=== PATIENT | female | born 1950 | race Caucasian/White ===

== ENCOUNTER → 2016-05-07 | Outpatient (CLI) | payer BC ==
--- NOTE | 2016-05-07 14:26 | MAMMOGRAPHY REPORT ---
BILATERAL DIGITAL SCREENING MAMMOGRAM WITH CAD: 05/07/2016 CLINICAL HISTORY: Routine screening. Patient has no complaints. TECHNIQUE: Bilateral CC, MLO and right XCCL views were obtained. Current study was also evaluated w ith a Computer Aided Detection (CAD) system. COMPARISON: Comparison is made to exams dated: 05/03/2015 mammogram, 03/10/2012 mammogram, 04/05/2014 mammogram, 03/06/2011 mammogram, 02/28/2010 mammogram - [facility], and 03/11/2006 ma mmogram - [facility]. BREAST COMPOSITION: There are scattered areas of fibroglandular density in both breasts. FINDINGS: There is stable focal asymmetry in the right upper outer quadrant. Minimal vascular calci fication in the breasts. No suspicious mass, architectural distortion or cluster of microcalcificat ions is seen. IMPRESSION: ACR BI-RADS CATEGORY 1: NEGATIVE There is no mammographic evidence of malignancy. A 1 year screening mammogram is recommended. The p atient will receive written notification of the results. Approximately 10% of breast cancers are not detected with mammography. A negative mammographic repor t should not delay biopsy if a clinically suggestive mass is present. Minerva Zamorano M.D. ay/:05/07/2016 13:23:00 Head Sampler: Monica CONTRERAS)(M), [facility] letter sent: Normal 1/2 BI-RADS Code: ACR BI-RADS Category 1: Negative
== END | disposition home or self-care (01) ==
LOC: C.MAMM 12:33
PROVIDERS: ATTEND Obstetrics & Gynecology
DX: Z12.31 Encounter for screening mammogram for malignant neoplasm of breast (principal)

== ENCOUNTER → 2016-08-28 | Outpatient (CLI) | payer BC | END | disposition home or self-care (01) | LOC: C.PAPS 08:49 | PROVIDERS: ATTEND Obstetrics & Gynecology | DX: Z01.419 Encounter for gynecological examination (general) (routine) without abnormal findings (principal) ==

== ENCOUNTER → 2017-05-09 | Outpatient (CLI) | payer BC ==
--- NOTE | 2017-05-10 07:20 | MAMMOGRAPHY REPORT ---
BILATERAL DIGITAL SCREENING MAMMOGRAM TOMOSYNTHESIS WITH CAD: 05/09/2017 CLINICAL HISTORY: Routine screening. Patient has no complaints. TECHNIQUE: Breast tomosynthesis in addition to standard 2D mammography was performed. Current study was also evaluated with a Computer Aided Detection (CAD) system. COMPARISON: Comparison is made to exams dated: 05/07/2016 mammogram, 05/03/2015 mammogram, 04/05/2014 m ammogram, 03/10/2012 mammogram, 03/06/2011 mammogram, and 02/28/2010 mammogram - [facility]. BREAST COMPOSITION: There are scattered areas of fibroglandular density in both breasts. FINDINGS: No suspicious masses, calcifications, or areas of architectural distortion are noted in ei ther breast. There has been no significant interval change compared to prior exams. IMPRESSION: ACR BI-RADS CATEGORY 1: NEGATIVE There is no mammographic evidence of malignancy. A 1 year screening mammogram is recommended. The pa tient will receive written notification of the results. Approximately 10% of breast cancers are not detected with mammography. A negative mammographic report should not delay biopsy if a clinically suggestive mass is present. Ashley Kapoor M.D. ah/:05/09/2017 12:46:13 Dispatcher Bus And Trolley: Maria De Jesus PAZ(Lelo)(Rhona)(BD), [facility] letter sent: Normal 1/2 BI-RADS Code: ACR BI-RADS Category 1: Negative
== END | disposition home or self-care (01) ==
LOC: C.MAMM 11:11
PROVIDERS: ATTEND Obstetrics & Gynecology
DX: Z12.31 Encounter for screening mammogram for malignant neoplasm of breast (principal)

== ENCOUNTER 2021-11-17 12:20 | Inpatient (IN) ==
--- NOTE | 2021-11-17 13:06 | XRay Report ---
XR chest 1V portable HISTORY: 71 years-old Female weakness acute weakness COMPARISON: None TECHNIQUE: Portable AP view of the chest FINDINGS: Cardiomediastinal and hilar silhouettes are within normal limits. No pneumothorax, pleural effusion, airspace consolidation or overt pulmonary edema. Bones of the chest appear grossly intact. IMPRESSION: No acute process. ACT 112: Negative or not required by law. The above report was generated using voice recognition software. It may contain grammatical, syntax o r spelling errors. Electronically signed by: Sai Grimaldo M.D. 11/17/2021 1:05 PM
--- NOTE | 2021-11-17 13:59 | Electrocardiogram Report ---
Test Reason : Blood Pressure : / mmHG Vent. Rate : 075 BPM Atrial Rate : 075 BPM P-R Int : 142 ms QRS Dur : 082 ms QT Int : 372 ms P-R-T Axes : 010 -09 043 degrees QTc Int : 415 ms Normal sinus rhythm Nonspecific ST abnormality Abnormal ECG No previous ECGs available Confirmed by Jalil Leonard ([id number]) on 11/17/2021 1:59:20 PM Referred By: Confirmed By:Demetrio Leonard
[2021-11-17 14:00] LABS: Troponin I High Sensitivity 12.1 pg/ml (0-14)
[2021-11-17 14:01] LABS: Albumin Globulin Ratio 1.6 (0.9-2); Albumin Level 4.1 gm/dl (3.4-5.0); BUN Creatinine Ratio 16.3 (10-20); Bilirubin,Total 1.3 mg/dl (0.2-1.0); Calcium 8.8 mg/dl (8.5-10.1); Creatinine Clr Calc Pharmacy 47.7 ml/min; Est GFR (African American) 87.2 ml/min; Est GFR (Non-African American) 75.2 ml/min; Globulin 2.5 gm/dl (2.5-4.0); Magnesium 2.1 mg/dl (1.7-2.4); Potassium 3.4 mmol/L (3.5-5.1); Total Protein 6.6 gm/dl (6.0-8.3)
[2021-11-17 14:07] LABS: Hematocrit (blood only) 38.2 % (34.1-44.9); Hemoglobin 13.5 g/dl (12.0-16.0); Mean Corpuscular Hemoglobin 30.4 pg (25.0-34.0); Mean Corpuscular Hgb Conc 35.3 g/dL (32.0-36.0); Mean Platelet Volume 12.5 fL (9.4-12.3); Platelet Count 28 K/uL (130-400); RDW Coefficient of Variation 12.6 % (11.5-14.5); RDW Standard Deviation 39.6 fL (36.4-46.3); Red Blood Count 4.44 M/uL (3.93-5.22); White Blood Count 2.85 K/ul (4.8-10.8)
[2021-11-17 14:35] LABS: Basophils # (auto) 0.01 K/uL (0-0.2); Basophils % (auto) 0.4 %; Immature Granulocytes # (auto) 0.01 K/uL (0.00-0.02); Immature Granulocytes % (auto) 0.4 %; Lymphocytes # (auto) 0.44 K/uL (1.2-3.4); Lymphocytes % (auto) 15.4 %; Monocytes # (auto) 0.21 K/uL (0.24-0.82); Monocytes % (auto) 7.4 %; Neutrophils # (auto) 2.18 K/uL (1.4-6.5); Neutrophils % (auto) 76.4 %
[2021-11-17 14:38] LABS: Anaplasmosis Smear(Rpt to DOH) Pos for Anaplasma
[2021-11-17] MEDS: SODIUM CHLORIDE 0.9% 1000ML 1,000 ML IV SCH (14:39)
[2021-11-17 14:41] LABS: Toxic Vacuolation 2+
[2021-11-17] MEDS ORDERED: ACETAMINOPHEN 325 MG TAB PO STA (14:47)
[2021-11-17] MEDS ORDERED: DOXYCYCLINE HYCLATE 100 MG in DEXTROSE 5% 100 ML IV STA (15:05)
--- NOTE | 2021-11-17 15:37 | Emergency Department Note ---
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 It became noticeably worse 3 days ago. Her states she has not been out of bed much over the last 4 days. He became concerned and brought her to the ED. Patient states she has lost her appetite. She has a known right AKA. She is blaming most of her symptoms on the extra effort it takes to move about with her prosthesis. She has had intermittent low-grade fevers over the last several days. She states she has used some Tylenol which has been effective. She has had her fever break a few times causing her to sweat. Intermittent mild frontal headaches. No head congestion or sore throat. No diarrhea. No other cold symptoms. She has not seen her PCP. No prior history of similar episode. Home Medications Medication Instructions Recorded Confirmed Type atorvastatin 20 mg tablet 20 mg PO DAILY 12/01/20 11/17/21 History gabapentin 300 mg capsule 600 - 900 mg PO TID 12/01/20 11/17/21 History lactobacillus combination no.4 3 0 mmu cells PO DAILY 11/17/21 11/17/21 History billion cell capsule (Probiotic) pantoprazole 40 mg tablet,delayed 40 mg PO DAILY 11/17/21 11/17/21 History release doxycycline hyclate 100 mg tablet 100 mg PO BID #20 tabs 11/19/21 Rx potassium chloride 20 mEq 20 meq PO DAILY #5 tabs 11/19/21 Rx tablet,extended release Allergies Allergy/AdvReac Type Severity Reaction Status Date / Time bee venom protein (honey bee) Allergy Mild Unknown Verified 11/17/21 15:59 Past Med/Surg History Medical History (Updated 11/17/21 @ 22:16 by Magalis Hall PA-C) Dyslipidemia Endometriosis Esophageal reflux Hypercholesterolemia Osteopenia 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 Surgical History H/O laparoscopy x2 History of dental surgery Hx of amputation below knee S/P wrist surgery Family History Denies family history of Ovarian cancer Prostate cancer Breast cancer Colorectal cancer Uterine cancer Social History (Updated 11/17/21 @ 22:14 by Magalis Hall PA-C) Smoking Status: Never smoker Hx Alcohol Use: No Hx Substance Use: No Preferred Language: Citizen Of [place] Communication Ability: Effective Cork Tipper Required: No Beliefs That Will Affect Care: None marital status: Current Living Situation: Spouse current occupational status: retired Other Information That Helps Us Care for You: No Feels Safe at Home: Yes Safety Concerns: Feels Safe At This Time Assistive Devices: Wheelchair Review of Systems A total of 10 systems reviewed and were otherwise negative Physical Exam Vital Signs Vital Signs - 24 hr 11/17/21 12:24 11/17/21 12:44 11/17/21 12:44 Temperature 36.3 C L Temperature Source Oral Pulse Rate 104 H Pulse Rate [Apical] 78 Pulse Rhythm Regular Pulse Strength Normal Respiratory Rate 18 18 Respiratory Effort / Characteristics Non-Labored Spontaneous Non-Labored Spontaneous Respiratory Depth Normal Normal Respiratory Pattern Regular Blood Pressure 109/75 Blood Pressure [Right Arm] 137/65 Blood Pressure Mean 86 Blood Pressure Mean [Right Arm] 89 Blood Pressure Position Sitting Pulse Oximetry 100 96 96 Oxygen Delivery Method Room Air Room Air Room Air Sepsis Recent Fever Within 48 Hours No Sepsis New/Unexplained Change in Mental Status No Sepsis Action Taken by Nursing No Action Required 11/17/21 13:13 11/17/21 13:46 11/17/21 14:42 Temperature 39.4 C H Temperature Source Oral Pulse Rate Pulse Rate [Apical] 76 89 Pulse Rhythm Pulse Strength Respiratory Rate 18 18 Respiratory Effort / Characteristics Non-Labored Spontaneous Non-Labored Respiratory Depth Normal Normal Respiratory Pattern Blood Pressure Blood Pressure [Right Arm] 136/69 141/64 H Blood Pressure Mean Blood Pressure Mean [Right Arm] 91 89 Blood Pressure Position Pulse Oximetry 98 95 96 Oxygen Delivery Method Room Air Room Air Room Air Sepsis Recent Fever Within 48 Hours Sepsis New/Unexplained Change in Mental Status Sepsis Action Taken by Nursing General: Well-developed, well-nourished, elderly female, in no acute distress. Laying in bed. Alert and oriented. Conversive. Skin: Warm and dry with good turgor. No rashes or lesions. No ecchymosis or erythema. The patient is not diaphoretic. No abrasions. HEENT: Normocephalic atraumatic. Eyes PERRLA, EOMI. No conjunctiva or scleral injection. Ears TMs intact bilaterally with good light reflexes. No erythema or bulging. No hemotympanum. Canals are patent. Nares patent bilaterally without turbinate enlargement. No significant drainage. No epistaxis. Oropharynx without erythema or exudate. Uvula midline, oral mucosa moist. No lesions present. Lymphatics are palpated without anterior or posterior chain enlargement or tenderness. Heart: Heart RRR. No MGR. Peripheral pulses are 2+. Lungs: Lungs are clear to auscultation. No crackles rhonchi or wheezing. Good air movement. The patient is able to take a deep breath. Abdomen: Abdomen was inspected, auscultated, and palpated. Bowel sounds present x 4. Soft, nontender to palpation. No hepato-splenomegaly. No masses noted. No rebound. No CVA tenderness. Musculoskeletal: Gross motor function of the upper and lower extremities is inta ct and unremarkable. Right above-knee amputation. Neurologic: Gross sensation is intact across the upper and lower extremities by soft touch. Course Administered Medications Discontinued Medications Acetaminophen (Acetaminophen 325 Mg Tab) 650 mg PO NOW [facility] Stop: 11/17/21 14:48 Last Admin: 11/17/21 14:49 Dose: 650 mg Documented By: SHANA Acetaminophen (Acetaminophen 325 Mg Tab) 650 mg PO Q4H PRN PRN Reason: Pain or Fever Stop: 12/17/21 23:14 Last Admin: 11/19/21 00:38 Dose: 650 mg Documented By: Admin: 11/18/21 00:51 Dose: 650 mg Documented By: YEMI Atorvastatin Calcium (Atorvastatin 20 Mg Tab) 20 mg PO DAILY [facility] Stop: 12/18/21 08:59 Last Admin: 11/19/21 08:07 Dose: 20 mg Documented By: Admin: 11/18/21 08:04 Dose: 20 mg Documented By: LISETH Gabapentin (Gabapentin 300 Mg Cap) 600 mg PO TID [facility] Stop: 12/17/21 23:14 Last Admin: 11/18/21 20:32 Dose: 600 mg Documented By: Admin: 11/18/21 13:45 Dose: 600 mg Documented By: Admin: 11/18/21 08:04 Dose: 600 mg Documented By: MTRhona Admin: 11/18/21 00:45 Dose: 600 mg Documented By: YEMI Gabapentin (Gabapentin 300 Mg Cap) 600 mg PO TID [facility]UD[facility] Stop: 12/19/21 08:59 Last Admin: 11/19/21 08:07 Dose: 600 mg Documented By: LISETH Sodium Chloride (Nss 1000ml) 1,000 mls @ 250 mls/hr IV .Q4H [facility]UD[facility] Stop: 12/17/21 14:14 Last Admin: 11/18/21 11:41 Dose: Not Given Documented By: Infusion: 11/17/21 18:17 Dose: 0 mls/hr Documented By: Admin: 11/17/21 14:39 Dose: 250 mls/hr Documented By: SHANA Doxycycline Hyclate 100 mg/ (Dextrose) 110 mls @ 50 mls/hr IV NOW STA Stop: 11/17/21 17:16 Last Infusion: 11/17/21 18:18 Dose: 0 mls/hr Documented By: Admin: 11/17/21 16:03 Dose: 50 mls/hr Documented By: BLAS Sodium Chloride (Nss 1000ml) 1,000 mls @ 125 mls/hr IV .Q8H PRUDENCE Stop: 11/17/21 23:44 Last Infusion: 11/18/21 01:01 Dose: 0 mls/hr Documented By: Admin: 11/17/21 22:07 Dose: 125 mls/hr Documented By: BLAS Sodium Chloride (Nss 1000ml) 1,000 mls @ 80 mls/hr IV .[id number] PRUDENCE Last Infusion: 11/18/21 11:40 Dose: 0 mls/hr Documented By: Admin: 11/18/21 00:45 Dose: 80 mls/hr Documented By: YEMI Doxycycline Hyclate 100 mg/ (Dextrose) 110 mls @ 50 mls/hr IV Q12H PRUDENCE Stop: 12/02/21 03:59 Last Infusion: 11/19/21 08:08 Dose: 0 mls/hr Documented By: Admin: 11/19/21 04:52 Dose: 50 mls/hr Documented By: Infusion: 11/18/21 19:00 Dose: 0 mls/hr Documented By: Admin: 11/18/21 16:42 Dose: 50 mls/hr Documented By: Infusion: 11/18/21 06:25 Dose: 0 mls/hr Documented By: Admin: 11/18/21 03:46 Dose: 50 mls/hr Documented By: YEMI Pantoprazole Sodium (Pantoprazole 40 Mg Tab) 40 mg PO DAILY [facility] Stop: 12/18/21 08:59 Last Admin: 11/19/21 08:07 Dose: 40 mg Documented By: Admin: 11/18/21 08:04 Dose: 40 mg Documented By: LISETH Potassium Chloride (Potassium Chloride Crtab 20 Meq Tabcr) 40 meq PO NOW STA Stop: 11/17/21 16:27 Last Admin: 11/17/21 18:06 Dose: 40 meq Documented By: BLAS Potassium Chloride (Potassium Chloride Crtab 20 Meq Tabcr) 40 meq PO NOW STA Stop: 11/18/21 03:31 Last Admin: 11/18/21 03:46 Dose: 40 meq Documented By: YEMI Potassium Chloride (Potassium Chloride 20 Meq/15 Ml Udc) 40 meq PO BID PRUDENCE Stop: 12/19/21 08:59 Last Admin: 11/19/21 10:34 Dose: 40 meq Documented By: LISETH Medical Decision Making Differential Diagnosis Anemia, ACS, dehydration, hypoglycemia, hypothyroidism, viral infection, bacterial infection Medical Records Attestation: I reviewed the patient's medical records. Home Medications Current Medication List: was personally reviewed by me Laboratory Data CBC, chemistry panel, troponin, TSH, and Lyme titer were obtained today. WBCs are low at 2.85. H&H are normal. Patient has significantly low platelets at 28. Lymphocytes and monocytes are both low hyponatremic with a sodium of 126. Potassium 3.4. Chloride 91. Anaplasma smear obtained in the lab is positive for anaplasmosis. Lyme titer is negative. TSH is normal at 1.2. Blood cultures were ordered. Result diagrams: 11/19/21 06:34 11/19/21 10:41 Lab Results 11/17/21 11/17/21 11/17/21 Range/Units 13:09 13:09 13:09 WBC 2.85 L (4.8-10.8) K/ul RBC 4.44 (3.93-5.22) M/uL Hgb 13.5 (12.0-16.0) g/dl Hct 38.2 (34.1-44.9) % MCV 86.0 (80.0-100.0) fL MCH 30.4 (25.0-34.0) pg MCHC 35.3 (32.0-36.0) g/dL RDW Std Deviation 39.6 (36.4-46.3) fL RDW Coeff of Joseph 12.6 (11.5-14.5) % Plt Count 28 L* (130-400) K/uL MPV 12.5 H (9.4-12.3) fL Immature Gran % (Auto) 0.4 % Neut % (Auto) 76.4 % Lymph % (Auto) 15.4 % [place] % (Auto) 7.4 % Eos % (Auto) 0.0 % Baso % (Auto) 0.4 % Neut # (Auto) 2.18 (1.4-6.5) K/uL Lymph # (Auto) 0.44 L (1.2-3.4) K/uL [place] # (Auto) 0.21 L (0.24-0.82) K/uL Eos # (Auto) 0.00 (0-0.50) K/uL Baso # (Auto) 0.01 (0-0.2) K/uL Immature Gran # (Auto) 0.01 (0.00-0.02) K/uL Toxic Vacuolation 2+ Peripher Smr Path Cons Sodium 126 L (136-145) mmol/L Potassium 3.4 L (3.5-5.1) mmol/L Chloride 91 L (98-107) mmol/L Carbon Dioxide 24 (21-32) mmol/L Anion Gap 11 (3-11) BUN 13 (6-23) mg/dl Creatinine 0.80 (0.6-1.2) mg/dl Est Cr Clr Drug Dosing 47.7 ml/min Est GFR ( Amer) 87.2 ml/min Est GFR (Non-Af Amer) 75.2 ml/min BUN/Creatinine Ratio 16.3 (10-20) Glucose 123 H (70-99(Fasting)) mg/dl Osmolality (280-300) mOsm/kg Lactate 1.4 (0.4-2.0) mmol/L Calcium 8.8 (8.5-10.1) mg/dl Magnesium 2.1 (1.7-2.4) mg/dl Total Bilirubin 1.3 H (0.2-1.0) mg/dl AST 82 H (13-39) U/L ALT 58 H (7-52) U/L Alkaline Phosphatase 79 (34-104) U/L Troponin I High Sens 12.1 (0-14) pg/ml Total Protein 6.6 (6.0-8.3) gm/dl Albumin 4.1 (3.4-5.0) gm/dl Globulin 2.5 (2.5-4.0) gm/dl Albumin/Globulin Ratio 1.6 (0.9-2) TSH (0.300-4.500) uIu/ml Anaplasma Smear See Comment A Anaplasma Comment Pos for Anaplasma Lyme Disease IgG Ab (Negative) Lyme Disease IgM Ab (Negative) 11/17/21 11/17/21 11/17/21 Range/Units 13:09 13:09 15:05 WBC (4.8-10.8) K/ul RBC (3.93-5.22) M/uL Hgb (12.0-16.0) g/dl Hct (34.1-44.9) % MCV (80.0-100.0) fL MCH (25.0-34.0) pg MCHC (32.0-36.0) g/dL RDW Std Deviation (36.4-46.3) fL RDW Coeff of Joseph (11.5-14.5) % Plt Count (130-400) K/uL MPV (9.4-12.3) fL Immature Gran % (Auto) % Neut % (Auto) % Lymph % (Auto) % [place] % (Auto) % Eos % (Auto) % Baso % (Auto) % Neut # (Auto) (1.4-6.5) K/uL Lymph # (Auto) (1.2-3.4) K/uL [place] # (Auto) (0.24-0.82) K/uL Eos # (Auto) (0-0.50) K/uL Baso # (Auto) (0-0.2) K/uL Immature Gran # (Auto) (0.00-0.02) K/uL Toxic Vacuolation Peripher Smr Path Cons Sodium (136-145) mmol/L Potassium (3.5-5.1) mmol/L Chloride (98-107) mmol/L Carbon Dioxide (21-32) mmol/L Anion Gap (3-11) BUN (6-23) mg/dl Creatinine (0.6-1.2) mg/dl Est Cr Clr Drug Dosing ml/min Est GFR ( Amer) ml/min Est GFR (Non-Af Amer) ml/min BUN/Creatinine Ratio (10-20) Glucose (70-99(Fasting)) mg/dl Osmolality 259 L (280-300) mOsm/kg Lactate (0.4-2.0) mmol/L Calcium (8.5-10.1) mg/dl Magnesium (1.7-2.4) mg/dl Total Bilirubin (0.2-1.0) mg/dl AST (13-39) U/L ALT (7-52) U/L Alkaline Phosphatase (34-104) U/L Troponin I High Sens (0-14) pg/ml Total Protein (6.0-8.3) gm/dl Albumin (3.4-5.0) gm/dl Globulin (2.5-4.0) gm/dl Albumin/Globulin Ratio (0.9-2) TSH 1.256 (0.300-4.500) uIu/ml Anaplasma Smear Anaplasma Comment Lyme Disease IgG Ab Negative (Negative) Lyme Disease IgM Ab Negative (Negative) Imaging Data My Impression: Chest x-ray obtained today was reviewed by me and read by radiology. There is no evidence of acute process. No pneumothorax, pleural effusion, or evidence of pneumonia. Radiologist's Impression: Chest X-Ray 11/17/21 12:54 XR chest 1V portable HISTORY: 71 years-old Female weakness acute weakness COMPARISON: None TECHNIQUE: Portable AP view of the chest FINDINGS: Cardiomediastinal and hilar silhouettes are within normal limits. No pneumothorax, pleural effusion, airspace consolidation or overt pulmonary edema. Bones of the chest appear grossly intact. IMPRESSION: No acute process. ACT 112: Negative or not required by law. The above report was generated using voice recognition software. It may contain grammatical, syntax or spelling errors. Electronically signed by: Sai Grimaldo M.D. 11/17/2021 1:05 PM ECG Data Additional Comments: EKG obtained today shows a normal sinus rhythm with a rate of 75. No acute ST or T wave changes. This was reviewed with with Dr. Stern. Blood Pressure Blood Pressure Findings: Normal blood pressure MDM Narrative Patient was evaluated in room B9. Conservative care measures were discussed. IV was established. Labs were obtained. Chest x-ray and EKG were also obtained. She was placed on a surveillance system monitor during her time in the ED. She remained in normal sinus rhythm with a rate in the 70s. No arrhythmia was noted. Patient was found to have significant thrombocytopenia. Chest x-ray and EKG were unremarkable. Lab smear is positive for anaplasmosis. This is consistent with her low platelets, low leukocytes and monocytes, and hyponatremia. It is also consistent with her fatigue and loss of appetite. Patient was given doxycycline 100 mg IV. Sodium was found to be low. She was given 1 L normal sterile saline at 125 ml/h for gentle hydration. Due to hyponatremia, I did recommend admission and further management. Patient is in agreement. [place] service was consulted. Please see that dictation for final management. She was afebrile upon initial presentation, but did develop a fever of 39.4 while in the department. She was given Tylenol 650 mg p.o. for this. Patient otherwise remained stable while in the ED. She and her both deny any known tick bites. However, [place] have dogs and [place] She states the dog sleep with them and the dogs frequently have ticks on them. Impression & Plan Anaplasmosis, Thrombocytopenia, Elevated liver enzymes Admission. Antibiotic treatment. Discharge Plan Visit Data Chief Complaint: Weakness Stated Complaint: WEAKNESS, LETHARGIC ED Provider: Luke Stern ED Midlevel Provider: Reymundo Haider Discharge Problem: Anaplasmosis, Thrombocytopenia, Elevated liver enzymes Patient Disposition: Admitted As Inpatient Discharge Instructions Interventions: ED Discharge Assessment Last Done: 11/17/21 22:37 Addendum November 21, 2021 23:34 HPI: The patient is a 71-year-old woman with a past medical history of fibrosarcoma status post right transfemoral amputation, hyperlipidemia, GERD who presents emergency department with generalized weakness and fatigue over the past week where she has had poor oral intake, feverishness, and malaise. A/P: Febrile to 39.4 in the emergency department. EKG without overt acute ischemia. WBC 2.8 with lymphopenia of 0.44. H/H within normal limits. Platelets low at 28K without evidence of bleeding. Smear reviewed by lab technicians and patholo gy showing evidence of anaplasmosis. Chemistry without metabolic acidosis. Sodium 126. LFTs are slightly elevated with total bili 1.3, AST and ALT 82 and 50, respectively consistent with the patient's anaplasmosis. UA without convincing evidence of infection. COVID-19 PCR was negative. Lyme screen was negative. Chest x-ray negative for acute cardiopulmonary process. Treatment initiated with doxycycline. Patient admitted for further management. I was consulted by the Advanced Practice Provider.I performed a substantive portion of the visit.This includes aspects of the HPI, MDM, diagnostic interpretations, and disposition/plan. I discussed the case with the ANICETO and agree with the findings and plan as documented in ANICETO Sefchick's note.
[2021-11-17] MEDS ORDERED: SODIUM CHLORIDE 0.9% 1000ML 1,000 ML IV SCH ×2 (15:45→23:15)
[2021-11-17] MEDS ORDERED: POTASSIUM CHLORIDE CRTAB 20 MEQ TABCR PO STA (16:26)
--- NOTE | 2021-11-17 16:37 | History & Physical Report ---
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 In ER initially afebrile then temp up to 30 9.4C, P: 104 down to 89, R: 18, BP 109/75, 100% on room air WBC: 2.8, PLT: 28, lactate: 1.4, AST: 82, ALT: 58. Positive Anaplasma smear. Negative Lyme, COVID-19 PCR In ER given doxycycline IV, NSS Blood cultures pending, obtained after initial antibiotics given Continue doxycycline IV CBC, CMP in a.m. (5) Hyponatremia: Plan: Na: 126 Patient received 400 mL NSS at time of my exam Urine osmolality, serum osmolality, urine sodium pending Gentle IVF BMP every 6 hours If no improvement consider nephrology consult (6) Hypokalemia: Plan: K: 3.4 Replace and monitor (7) Fibrosarcoma: Plan: History of fibrosarcoma right lower leg status post transfemoral amputation after failed limb salvage Continue gabapentin for phantom limb pain (8) GERD (gastroesophageal reflux disease): Plan: Continue PPI (9) Dyslipidemia: Plan: Continue atorvastatin DVT Prophylaxis SCDs secondary to thrombocytopenia Full Code as per discussion with pt Follows with Dr Mead for routine care Pt was seen and care coordinated with Dr Sanchez. 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 Pt states 3 days ago started with lethargy, myalgias, weakness. Had Tmax of 102F that would improve with Tylenol then resume. Also c/o frontal SHETTY when had fever that resolved with defervescence. Reports decreased appetite and decreased oral intake. States had 2 small episodes of vomiting 2 days ago. Drinking approximately 32-48 ounces daily. Feeling lightheaded with standing. Denies any known tick bite. Reports has dogs and has removed ticks from dogs in past. Denies diaphoresis, hematemesis, diarrhea, constipation, syncope, vision changes, neck pain, CP, SOB, orthopnea, palpitations, cough, sore throat, choking, otalgia, rhinorrhea, abdominal pain, paresthesias, extremity weakness, extremity edema, rashes, urinary symptoms. Allergies Allergy/AdvReac Type Severity Reaction Status Date / Time bee venom protein (honey bee) Allergy Mild Unknown Verified 11/17/21 15:59 Home Medications Medication Instructions Recorded Confirmed Type atorvastatin 20 mg tablet 20 mg PO DAILY 12/01/20 11/17/21 History gabapentin 300 mg capsule 600 - 900 mg PO TID 12/01/20 11/17/21 History lactobacillus combination no.4 3 0 mmu cells PO DAILY 11/17/21 11/17/21 History billion cell capsule (Probiotic) pantoprazole 40 mg tablet,delayed 40 mg PO DAILY 11/17/21 11/17/21 History release Past Med/Surg History Medical History (Updated 11/17/21 @ 22:16 by Magalis Hall PA-C) Dyslipidemia Endometriosis Esophageal reflux Hypercholesterolemia Osteopenia 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 Surgical History H/O laparoscopy x2 History of dental surgery Hx of amputation below knee S/P wrist surgery Family History Denies family history of Ovarian cancer Prostate cancer Breast cancer Colorectal cancer Uterine cancer Social History (Updated 11/17/21 @ 22:14 by Magalis Hall PA-C) Smoking Status: Never smoker Hx Alcohol Use: No Hx Substance Use: No Preferred Language: Mauritanian Communication Ability: Effective Charger Required: No Beliefs That Will Affect Care: None marital status: Current Living Situation: Spouse current occupational status: retired Other Information That Helps Us Care for You: No Feels Safe at Home: Yes Safety Concerns: Feels Safe At This Time Assistive Devices: Wheelchair Review of Systems Review of Systems: All systems reviewed & are unremarkable except as noted in HPI & below Physical Exam Physical Exam: General: no acute distress, ill appearing, WDWN Head: normocephalic, atraumatic Eyes: conjunctiva non-injected, anicteric ENT: normal inspection external ears, nose, mucous membranes mildly dry Neck: supple, trachea midline, ROM intact Lungs: clear, no respiratory distress, no wheezing/rhonchi/rales CV: RRR, no murmur, no pretibial edema Abd: normal BS, soft, non-tender Ext: LLE: No cyanosis, no calf tenderness, RLE: +amputation, +prosthetic in place Neuro: A&O x 3, no focal deficits noted, normal affect Skin: warm, dry Results & Data Results & Data ([facility]) Vital Signs (Past 12 Hours) Vital Signs Temp Pulse Pulse Resp BP BP Pulse Ox 11/17/21 14:42 39.4 C H 89 18 141/64 H 96 11/17/21 13:46 76 18 136/69 95 11/17/21 13:13 98 11/17/21 12:44 78 18 137/65 96 11/17/21 12:44 96 11/17/21 12:24 36.3 C L 104 H 18 109/75 100 O2 Del Method 11/17/21 14:42 Room Air 11/17/21 13:46 Room Air 11/17/21 13:13 Room Air 11/17/21 12:44 Room Air 11/17/21 12:44 Room Air 11/17/21 12:24 Room Air Laboratory Results Short CBC 11/17/21 Range/Units 13:09 WBC 2.85 L (4.8-10.8) K/ul Hgb 13.5 (12.0-16.0) g/dl Hct 38.2 (34.1-44.9) % Plt Count 28 L* (130-400) K/uL BMP 11/17/21 13:09 Sodium 126 L Potassium 3.4 L Chloride 91 L Carbon Dioxide 24 BUN 13 Creatinine 0.80 Glucose 123 H Calcium 8.8 Liver Function 11/17/21 Range/Units 13:09 Total Bilirubin 1.3 H (0.2-1.0) mg/dl AST 82 H (13-39) U/L ALT 58 H (7-52) U/L Alkaline Phosphatase 79 (34-104) U/L Albumin 4.1 (3.4-5.0) gm/dl Urine 11/17/21 Range/Units 16:59 Urine Color Yellow Urine Appearance Clear (Clear) Urine pH 6.5 (4.5-7.5) Ur Specific [place] 1.010 (1.000-1.030) Urine Protein 1+ H (Negative) Urine Glucose (UA) Negative (Negative) Diagnostic Findings Chest X-Ray 11/17/21 12:54 XR chest 1V portable HISTORY: 71 years-old Female weakness acute weakness COMPARISON: None TECHNIQUE: Portable AP view of the chest FINDINGS: Cardiomediastinal and hilar silhouettes are within normal limits. No pneumothorax, pleural effusion, airspace consolidation or overt pulmonary edema. Bones of the chest appear grossly intact. IMPRESSION: No acute process. ACT 112: Negative or not required by law. The above report was generated using voice recognition software. It may contain grammatical, syntax or spelling errors. Electronically signed by: Sai Grimaldo M.D. 11/17/2021 1:05 PM Code Status & VTE Plan VTE Prophylaxis Plan VTE Prophylaxis will be ordered: Yes Supervising Physician Co-Signing Physician Notes Patient is a 71-year-old female with history of Myxoid fibrosarcoma, GERD and other medical problems presents with history of fever, lethargy, generalized weakness, frontal headache and some balance issues for the past 3 days. Also reports poor appetite and decreased oral intake associated with nausea, vomiting. Please review HPI for complete details of presentation. Blood work showed white count 2.85, platelets 28K, sodium 126, potassium 3.4, chloride 91, glucose 123, mild transaminitis, peripheral smear suggestive of anaplasmosis. Chest x-ray showed no acute process. On exam patient is moderately built nourished, no apparent distress, normocephalic atraumatic, EOMI, normal breath sounds, clear to auscultation, S1-S2, no murmur, no peripheral edema, abdomen soft, nontender, normal bowel sounds, alert, awake, oriented, grossly no focal deficits,+ right lower extremity prosthesis present. Patient is admitted for management of anaplasmosis. Thrombocytopenia, transaminitis, hyponatremia likely secondary to anaplasmosis. Started on doxycycline. Monitor CBC, CMP closely. Agree with urine, serum osmolality and urine sodium. Consider nephrology evaluation if needed. I personally reviewed the record. Patient is interviewed and examined at bedside. Patient's care is coordinated with Magalis Hall PA-C. Please refer to the documentation above for details of patient's presentation and for discussion of other issues.
[2021-11-17 17:13] LABS: Lyme Ab IgG w/WB Rflx Negative (Negative); Lyme Ab IgM w/WB Rflx Negative (Negative)
[2021-11-17 17:20] LABS: Appearance Urine Clear (Clear); Bacteria Urine Automated Negative (Negative); Bilirubin Urine Negative (Negative); Blood Urine 1+ (Negative); Color Urine Yellow; Glucose Urine UA Negative (Negative); Ketones Urine Negative (Negative); Leukocyte Esterase Urine Negative (Negative); Nitrite Urine Negative (Negative); Protein Urine 1+ (Negative); Urobilinogen Urine Negative (Negative); pH Urine 6.5 (4.5-7.5)
[2021-11-17] MEDS ORDERED: ONDANSETRON INJ 2 MG/ML 2 ML VIAL IV PRN (23:15)
[2021-11-17] MEDS ORDERED: POLYETHYLENE (MIRALAX) 17 GM PACK PO PRN (23:15)
[2021-11-17 23:36] LABS: Calcium 8.2 mg/dl (8.5-10.1); Creatinine Clr Calc Pharmacy 65.8 ml/min; Potassium 3.2 mmol/L (3.5-5.1)
[2021-11-18] MEDS: GABAPENTIN 300 MG CAP PO SCH ×4 (00:45→20:32)
[2021-11-18] MEDS: ACETAMINOPHEN 325 MG TAB PO PRN (00:51)
[2021-11-18] MEDS ORDERED: POTASSIUM CHLORIDE CRTAB 20 MEQ TABCR PO STA (03:30)
[2021-11-18] MEDS: DOXYCYCLINE HYCLATE 100 MG in DEXTROSE 5% 100 ML IV SCH ×2 (03:46→16:42)
[2021-11-18 05:11] LABS: Albumin Globulin Ratio 1.7 (0.9-2); Albumin Level 3.4 gm/dl (3.4-5.0); BUN Creatinine Ratio 23.2 (10-20); Bilirubin,Total 0.8 mg/dl (0.2-1.0); Calcium 8.1 mg/dl (8.5-10.1); Creatinine Clr Calc Pharmacy 74.9 ml/min; Est GFR (African American) 110.3 ml/min; Est GFR (Non-African American) 95.1 ml/min; Potassium 3.1 mmol/L (3.5-5.1); Total Protein 5.4 gm/dl (6.0-8.3)
[2021-11-18 05:28] LABS: Hematocrit (blood only) 34.2 % (34.1-44.9); Mean Corpuscular Hemoglobin 30.1 pg (25.0-34.0); Mean Corpuscular Hgb Conc 35.1 g/dL (32.0-36.0); Mean Corpuscular Volume 85.7 fL (80.0-100.0); Mean Platelet Volume 12.1 fL (9.4-12.3); Platelet Count 34 K/uL (130-400); RDW Coefficient of Variation 12.8 % (11.5-14.5); RDW Standard Deviation 40.3 fL (36.4-46.3); Red Blood Count 3.99 M/uL (3.93-5.22); White Blood Count 1.92 K/ul (4.8-10.8)
[2021-11-18 06:35] LABS: Basophils # (auto) 0.02 K/uL (0-0.2); Lymphocytes # (auto) 0.97 K/uL (1.2-3.4); Lymphocytes % (auto) 50.5 %; Monocytes # (auto) 0.17 K/uL (0.24-0.82); Monocytes % (auto) 8.9 %; Neutrophils # (auto) 0.76 K/uL (1.4-6.5); Neutrophils % (auto) 39.6 %
[2021-11-18] MEDS: ATORVASTATIN 20 MG TAB PO SCH (08:04)
[2021-11-18] MEDS: PANTOprazole 40 MG TAB PO SCH (08:04)
--- NOTE | 2021-11-18 09:18 | Nephrology Consultation ---
Date of Consultation November 18, 2021 Assessment & Plan (1) Hyponatremia: Patient with hyponatremia likely hypovolemic hyponatremia. Urine sodium was less than 10 and urine osmolality of 246. Admission sodium was 126 but uptrending to 132 this morning. Sodium improved after IV fluids. Okay to monitor sodium daily. Rate of correction is appropriate. (2) Hypokalemia: Patient with hypokalemia of 3.1. Cautious potassium repletion to avoid overcorrection of the sodium. Okay to give 20 mEq of potassium chloride today. 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 Patient has been started on doxycycline. She feels better today reports improvement in the nausea. No fever. Admission sodium was 126 but uptrending to 132 today. She has hypokalemia of 3.1. She also has leukopenia of 1.9. No leg swelling. She has right below-knee amputation.She is eating better this morning. No shortness of breath. Chest x-ray reviewed no acute pulmonary process. Allergies Allergy/AdvReac Type Severity Reaction Status Date / Time bee venom protein (honey bee) Allergy Mild Unknown Verified 11/17/21 15:59 Home Medications Medication Instructions Recorded Confirmed Type atorvastatin 20 mg tablet 20 mg PO DAILY 12/01/20 11/17/21 History gabapentin 300 mg capsule 600 - 900 mg PO TID 12/01/20 11/17/21 History lactobacillus combination no.4 3 0 mmu cells PO DAILY 11/17/21 11/17/21 History billion cell capsule (Probiotic) pantoprazole 40 mg tablet,delayed 40 mg PO DAILY 11/17/21 11/17/21 History release Patient History Medical History (Updated 11/17/21 @ 22:16 by Magalis Hall PA-C) Dyslipidemia Endometriosis Esophageal reflux Hypercholesterolemia Osteopenia 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 Surgical History H/O laparoscopy x2 History of dental surgery Hx of amputation below knee S/P wrist surgery Family History Denies family history of Ovarian cancer Prostate cancer Breast cancer Colorectal cancer Uterine cancer Social History (Updated 11/17/21 @ 22:14 by Magalis Hall PA-C) Smoking Status: Never smoker Hx Alcohol Use: No Hx Substance Use: No Preferred Language: Hebrew Communication Ability: Effective Cash Room Clerk Required: No Beliefs That Will Affect Care: None marital status: Current Living Situation: Spouse current occupational status: retired Other Information That Helps Us Care for You: No Feels Safe at Home: Yes Safety Concerns: Feels Safe At This Time Assistive Devices: Wheelchair Review of Systems Review of Systems: All other systems were reviewed and negative except as noted in HPI Physical Exam Physical Exam: General exam: Appears comfortable, no acute distress HEENT: Pupils are equal and reactive to light Neck: No JVD, neck is supple trachea is midline Respiratory system: Clear breath sounds bilaterally. Gastrointestinal: Abdomen is soft, non distended, non tender, bowel sounds are present CVS: Regular rate and rhythm. No murmurs, rubs or gallops Musculoskeletal: No joint or muscle tenderness Extremities: Non tender, no edema, peripheral pulses are present Neuro: Oriented, no tremors, no focal neurological deficits Skin: No rashes Results & Data ([facility]) Vital Signs (Past 12 Hours) Vital Signs Temp Pulse Pulse Pulse Resp BP BP 11/18/21 08:32 36.6 C 65 19 117/76 11/17/21 23:26 71 11/18/21 03:12 36.7 C 62 16 94/59 L 11/17/21 23:00 36.8 C 69 18 125/76 11/17/21 22:37 11/17/21 22:15 72 20 11/17/21 22:00 74 21 11/17/21 21:45 72 22 11/17/21 21:30 69 21 11/17/21 21:15 70 16 11/17/21 22:24 37.2 C Pulse Ox O2 Del Method 11/18/21 08:32 93 Room Air 11/17/21 23:26 11/18/21 03:12 97 Room Air 11/17/21 23:00 97 Room Air 11/17/21 22:37 Room Air 11/17/21 22:15 11/17/21 22:00 11/17/21 21:45 11/17/21 21:30 11/17/21 21:15 11/17/21 22:24 Laboratory Results 11/18/21 04:28 11/17/21 11/17/21 11/18/21 13:09 13:09 04:28 WBC 2.85 L 1.92 L RBC 4.44 3.99 MCV 86.0 85.7 MCH 30.4 30.1 MCHC 35.3 35.1 RDW Std Deviation 39.6 40.3 RDW Coeff of Joseph 12.6 12.8 Plt Count 28 L* 34 L MPV 12.5 H 12.1 Albumin 4.1 11/18/21 04:28 WBC RBC MCV MCH MCHC RDW Std Deviation RDW Coeff of Joseph Plt Count MPV Albumin 3.4
[2021-11-18 11:03] LABS: BUN Creatinine Ratio 23.5 (10-20); Calcium 8.4 mg/dl (8.5-10.1); Creatinine Clr Calc Pharmacy 82.2 ml/min; Est GFR (African American) 113.7 ml/min; Est GFR (Non-African American) 98.1 ml/min; Potassium 3.7 mmol/L (3.5-5.1)
[2021-11-18] MEDS: SODIUM CHLORIDE 0.9% 1000ML 1,000 ML IV SCH (11:41)
[2021-11-18] MEDS ORDERED: GABAPENTIN 300 MG CAP PO PRN ×2 (12:45→21:00)
--- NOTE | 2021-11-18 16:23 | Hospitalist Progress Note ---
Date of Service November 18, 2021 Assessment & Plan (1) Fever: (2) Anaplasmosis: (3) Thrombocytopenia: (4) Elevated liver enzymes: Plan: Patient is a 71 yr female with H/O Myxoid fibrosarcoma right lower leg with right transfemoral amputation, GERD, dyslipidemia presented to ER with c/o T max fever of 102F, lethargy, myalgias, weakness, anorexia x 3 days. Anaplasmosis Leukopenia, thrombocytopenia, transaminitis, hyponatremia secondary to above Peripheral smear consistent with intracytoplasmic neutrophilic inclusions Patient denies tick exposure Lyme screen negative Blood cultures pending Continue doxycycline Monitor CBC, LFTs, sodium levels (5) Hyponatremia: Plan: Hypoosmolar hyponatremia Likely secondary to poor oral intake, anaplasmosis Sodium levels improved Received IV fluids Monitor sodium levels closely Appreciate nephrology input (6) Hypokalemia: Plan: Replace and monitor (7) Fibrosarcoma: Plan: H/O fibrosarcoma right lower leg status post transfemoral amputation after failed limb salvage Continue gabapentin for phantom limb pain (8) GERD (gastroesophageal reflux disease): Plan: Continue PPI (9) Dyslipidemia: Plan: Continue atorvastatin DVT PX: SCDs Re:Thrombocytopenia Code Status Full Code Admission and Anticipated Discharge Date Admission Date: November 17, 2021 Subjective Patient is seen and examined at bedside States feeling a lot better today Generalized weakness improved Denies any confusion, chest pain, shortness of breath, dizziness, nausea, abdominal pain Review of Systems Review of Systems: All systems reviewed & are unremarkable except as noted in Subjective Physical Exam Physical Exam: Physical Exam: Vitals signs as noted above General Appearance:Moderately built and nourished, no apparent distress Head: normocephalic, Atraumatic Eyes: normal inspection, EOMI Neck: supple, Trachea midline Respiratory/Chest: Normal breath sounds, CTA, No accessory muscle use Cardiovascular: S1, S2, No murmur Abdomen/GI:Soft, Non tender, Bowel sounds present Extremities/Musculoskeletal:normal inspection, no edema, Right Above knee amputation Neurologic/Psych:AAOX3, grossly no focal neurological deficits Skin: normal color, warm Results & Data Results & Data ([facility]) Vital Signs (Past 12 Hours) Vital Signs Temp Pulse Pulse Resp BP BP Pulse Ox 11/18/21 15:49 36.7 C 67 19 128/76 97 11/18/21 08:00 62 11/18/21 11:52 36.8 C 63 20 112/72 97 11/18/21 08:32 36.6 C 65 19 117/76 93 O2 Del Method 11/18/21 15:49 Room Air 11/18/21 08:00 11/18/21 11:52 Room Air 11/18/21 08:32 Room Air Laboratory Results Short CBC 11/18/21 Range/Units 04:28 WBC 1.92 L (4.8-10.8) K/ul Hgb 12.0 (12.0-16.0) g/dl Hct 34.2 (34.1-44.9) % Plt Count 34 L (130-400) K/uL BMP 11/17/21 11/18/21 11/18/21 23:02 04:28 10:18 Sodium 132 L 132 L 135 L Potassium 3.2 L 3.1 L 3.7 Chloride 102 103 105 Carbon Dioxide 23 23 21 BUN 11 13 12 Creatinine 0.58 L 0.56 L 0.51 L Glucose 124 H 142 H 87 Calcium 8.2 L 8.1 L 8.4 L Liver Function 11/18/21 Range/Units 04:28 Total Bilirubin 0.8 D (0.2-1.0) mg/dl AST 85 H (13-39) U/L ALT 71 H (7-52) U/L Alkaline Phosphatase 73 (34-104) U/L Albumin 3.4 (3.4-5.0) gm/dl Urine 11/17/21 Range/Units 16:59 Urine Color Yellow Urine Appearance Clear (Clear) Urine pH 6.5 (4.5-7.5) Ur Specific [place] 1.010 (1.000-1.030) Urine Protein 1+ H (Negative) Urine Glucose (UA) Negative (Negative)
[2021-11-19] MEDS: ACETAMINOPHEN 325 MG TAB PO PRN (00:38)
[2021-11-19] MEDS: DOXYCYCLINE HYCLATE 100 MG in DEXTROSE 5% 100 ML IV SCH (04:52)
[2021-11-19 07:31] LABS: Hematocrit (blood only) 38.7 % (34.1-44.9); Hemoglobin 13.2 g/dl (12.0-16.0); Mean Corpuscular Hemoglobin 29.7 pg (25.0-34.0); Mean Corpuscular Hgb Conc 34.1 g/dL (32.0-36.0); Mean Corpuscular Volume 87.2 fL (80.0-100.0); Platelet Count 62 K/uL (130-400); RDW Coefficient of Variation 12.8 % (11.5-14.5); RDW Standard Deviation 40.7 fL (36.4-46.3); Red Blood Count 4.44 M/uL (3.93-5.22); White Blood Count 3.96 K/ul (4.8-10.8)
[2021-11-19 07:58] LABS: ALC (manual) 1.94 K/uL (1.2-3.4); ANC (manual) 1.62 K/uL (1.4-6.5); Eosinophils # (manual) 0.08 K/uL (0-0.50); Eosinophils % (manual) 2 %; Lymphocytes # (manual) 1.27 K/uL (1.2-3.4); Lymphocytes % (manual) 32 %; Monocytes # (manual) 0.36 K/uL (0.24-0.82); Monocytes % (manual) 9 %; Neutrophils # (manual) 1.62 K/uL (1.4-6.5); Neutrophils % (manual) 41 %; Reactive Lymphocytes # (manual) 0.67 K/uL; Reactive Lymphocytes % (manual) 17 %
[2021-11-19 08:06] LABS: Albumin Globulin Ratio 1.3 (0.9-2); Albumin Level 3.8 gm/dl (3.4-5.0); BUN Creatinine Ratio 25.9 (10-20); Bilirubin,Total 0.6 mg/dl (0.2-1.0); Calcium 8.8 mg/dl (8.5-10.1); Creatinine Clr Calc Pharmacy 72.2 ml/min; Globulin 2.9 gm/dl (2.5-4.0); Magnesium 2.2 mg/dl (1.7-2.4); Potassium 3.2 mmol/L (3.5-5.1); Total Protein 6.7 gm/dl (6.0-8.3)
[2021-11-19] MEDS: ATORVASTATIN 20 MG TAB PO SCH (08:07)
[2021-11-19] MEDS: PANTOprazole 40 MG TAB PO SCH (08:07)
[2021-11-19] MEDS ORDERED: GABAPENTIN 300 MG CAP PO SCH (09:00)
[2021-11-19] MEDS ORDERED: POTASSIUM CHLORIDE 20 MEQ/15 ML UDC PO SCH (09:00)
--- NOTE | 2021-11-19 09:51 | Nephrology Progress Note ---
Date of Service November 19, 2021 Assessment & Plan (1) Hyponatremia: Plan: Patient with hyponatremia likely hypovolemic hyponatremia. Urine sodium was less than 10 and urine osmolality of 246. Admission sodium was 126 but uptrending to 129 this morning. Sodium improved after IV fluids. Okay to monitor sodium daily. Rate of correction is appropriate. -Repeat sodium is pending (2) Hypokalemia: Plan: Patient with hypokalemia of 3.2. We will give potassium chloride 40 mEq twice daily. Admission and Anticipated Discharge Date Admission Date: November 17, 2021 Subjective Seen for hyponatremia and hypokalemia. She feels better today. No shortness of breath or diarrhea. Review of Systems Review of Systems: All other systems were reviewed and negative except as noted in HPI Physical Exam Physical Exam: General exam: Appears comfortable, no acute distress HEENT: Pupils are equal and reactive to light Neck: No JVD, neck is supple trachea is midline Respiratory system: Clear breath sounds bilaterally. Gastrointestinal: Abdomen is soft, non distended, non tender, bowel sounds are present CVS: Regular rate and rhythm. No murmurs, rubs or gallops Musculoskeletal: No joint or muscle tenderness Extremities: Non tender, no edema, peripheral pulses are present Neuro: Oriented, no tremors, no focal neurological deficits Skin: No rashes Results & Data ([facility]) Vital Signs (Past 12 Hours) Vital Signs Temp Pulse Pulse Resp BP Pulse Ox O2 Del Method 11/19/21 07:50 37.1 C 66 18 137/79 95 Room Air 11/19/21 03:01 36.8 C 63 17 103/66 98 Room Air 11/18/21 22:20 67 11/18/21 22:45 37 C 65 18 121/80 96 Room Air Laboratory Results 11/19/21 06:34 11/19/21 11/19/21 06:34 06:34 WBC 3.96 L RBC 4.44 MCV 87.2 MCH 29.7 MCHC 34.1 RDW Std Deviation 40.7 RDW Coeff of Joseph 12.8 Plt Count 62 L D MPV 11.0 Albumin 3.8
--- NOTE | 2021-11-19 13:02 | Hospitalist Progress Note ---
Date of Service November 19, 2021 Assessment & Plan (1) Fever: (2) Anaplasmosis: (3) Thrombocytopenia: (4) Elevated liver enzymes: Plan: Patient is a 71 yr female with H/O Myxoid fibrosarcoma right lower leg with right transfemoral amputation, GERD, dyslipidemia presented to ER with c/o T max fever of 102F, lethargy, myalgias, weakness, anorexia x 3 days. Anaplasmosis Leukopenia, thrombocytopenia, transaminitis, hyponatremia secondary to above Peripheral smear consistent with intracytoplasmic neutrophilic inclusions Patient denies tick exposure Lyme screen negative Blood cultures: Negative to date Continue doxycycline CBC, LFTs, sodium levels continues to improve Plan to discharge home today Advised to get repeat CBC, CMP as outpatient in 1 week and follow up with PCP (5) Hyponatremia: Plan: Hypoosmolar hyponatremia Likely secondary to poor oral intake, anaplasmosis Sodium levels improved to 137 Received IV fluids Monitor sodium levels Appreciate nephrology input (6) Hypokalemia: Plan: Replace and monitor (7) Fibrosarcoma: Plan: H/O fibrosarcoma right lower leg status post transfemoral amputation after failed limb salvage Continue gabapentin for phantom limb pain (8) GERD (gastroesophageal reflux disease): Plan: Continue PPI (9) Dyslipidemia: Plan: Continue atorvastatin DVT PX: SCDs Re:Thrombocytopenia Code Status Full Code Disposition Home Admission and Anticipated Discharge Date Admission Date: November 17, 2021 Subjective Patient is seen and examined at bedside Doing well today No new complaints Eager to get discharged Denies any chest pain, shortness of breath, dizziness, nausea, abdominal pain Review of Systems Review of Systems: All systems reviewed & are unremarkable except as noted in Subjective Physical Exam Physical Exam: Physical Exam: Vitals signs as noted above General Appearance:Moderately built and nourished, no apparent distress Head: normocephalic, Atraumatic Eyes: normal inspection, EOMI Neck: supple, Trachea midline Respiratory/Chest: Normal breath sounds, CTA, No accessory muscle use Cardiovascular: S1, S2, No murmur Abdomen/GI:Soft, Non tender, Bowel sounds present Extremities/Musculoskeletal:normal inspection, no edema, Right Above knee ampu tation Neurologic/Psych:AAOX3, grossly no focal neurological deficits Skin: normal color, warm Results & Data Results & Data ([facility]) Vital Signs (Past 12 Hours) Vital Signs Temp Pulse Resp BP Pulse Ox O2 Del Method 11/19/21 07:50 37.1 C 66 18 137/79 95 Room Air 11/19/21 03:01 36.8 C 63 17 103/66 98 Room Air Laboratory Results Short CBC 11/19/21 Range/Units 06:34 WBC 3.96 L (4.8-10.8) K/ul Hgb 13.2 (12.0-16.0) g/dl Hct 38.7 (34.1-44.9) % Plt Count 62 L D (130-400) K/uL BMP 11/19/21 11/19/21 06:34 10:41 Sodium 129 L 137 Potassium 3.2 L Chloride 98 Carbon Dioxide 25 BUN 15 Creatinine 0.58 L Glucose 109 H Calcium 8.8 Liver Function 11/19/21 Range/Units 06:34 Total Bilirubin 0.6 (0.2-1.0) mg/dl AST 80 H (13-39) U/L ALT 86 H (7-52) U/L Alkaline Phosphatase 82 (34-104) U/L Albumin 3.8 (3.4-5.0) gm/dl
--- NOTE | 2021-11-19 13:12 | Discharge Summary ---
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 Pt states 3 days ago started with lethargy, myalgias, weakness. Had Tmax of 102F that would improve with Tylenol then resume. Also c/o frontal SHETTY when had fever that resolved with defervescence. Reports decreased appetite and decreased oral intake. States had 2 small episodes of vomiting 2 days ago. Drinking approximately 32-48 ounces daily. Feeling lightheaded with standing. Denies any known tick bite. Reports has dogs and has removed ticks from dogs in past. Denies diaphoresis, hematemesis, diarrhea, constipation, syncope, vision changes, neck pain, CP, SOB, orthopnea, palpitations, cough, sore throat, choking, otalgia, rhinorrhea, abdominal pain, paresthesias, extremity weakness, extremity edema, rashes, urinary symptoms. Admission Exam Per Admitting Provider Physical Exam Physical Exam: General: no acute distress, ill appearing, WDWN Head: normocephalic, atraumatic Eyes: conjunctiva non-injected, anicteric ENT: normal inspection external ears, nose, mucous membranes mildly dry Neck: supple, trachea midline, ROM intact Lungs: clear, no respiratory distress, no wheezing/rhonchi/rales CV: RRR, no murmur, no pretibial edema Abd: normal BS, soft, non-tender Ext: LLE: No cyanosis, no calf tenderness, RLE: +amputation, +prosthetic in place Neuro: A&O x 3, no focal deficits noted, normal affect Skin: warm, dry Principal Diagnosis Anaplasmosis Hyponatremia Hypokalemia Discharge Data Allergies Allergy/AdvReac Type Severity Reaction Status Date / Time bee venom protein (honey bee) Allergy Mild Unknown Verified 11/17/21 15:59 Consultations 11/17/21 15:43 ED Decision to Admit Stat 11/17/21 23:15 Consult Nephrology Routine Ordered Studies Laboratory Results WBC 3.96 K/ul (4.8-10.8) L 11/19/21 06:34 RBC 4.44 M/uL (3.93-5.22) 11/19/21 06:34 Hgb 13.2 g/dl (12.0-16.0) 11/19/21 06:34 Hct 38.7 % (34.1-44.9) 11/19/21 06:34 MCV 87.2 fL (80.0-100.0) 11/19/21 06:34 MCH 29.7 pg (25.0-34.0) 11/19/21 06:34 MCHC 34.1 g/dL (32.0-36.0) 11/19/21 06:34 RDW Std Deviation 40.7 fL (36.4-46.3) 11/19/21 06:34 RDW Coeff of Joseph 12.8 % (11.5-14.5) 11/19/21 06:34 Plt Count 62 K/uL (130-400) L D 11/19/21 06:34 MPV 11.0 fL (9.4-12.3) 11/19/21 06:34 Immature Gran % (Auto) 0.0 % 11/18/21 04:28 Neut % (Auto) 39.6 % 11/18/21 04:28 Lymph % (Auto) 50.5 % 11/18/21 04:28 Jack % (Auto) 8.9 % 11/18/21 04:28 Eos % (Auto) 0.0 % 11/18/21 04:28 Baso % (Auto) 1.0 % 11/18/21 04:28 Neut # (Auto) 0.76 K/uL (1.4-6.5) L* 11/18/21 04:28 Lymph # (Auto) 0.97 K/uL (1.2-3.4) L 11/18/21 04:28 Jack # (Auto) 0.17 K/uL (0.24-0.82) L 11/18/21 04:28 Eos # (Auto) 0.00 K/uL (0-0.50) 11/18/21 04:28 Baso # (Auto) 0.02 K/uL (0-0.2) 11/18/21 04:28 Immature Gran # (Auto) 0.00 K/uL (0.00-0.02) 11/18/21 04:28 Neutrophils % (Manual) 41 % 11/19/21 06:34 Lymphocytes % (Manual) 32 % 11/19/21 06:34 Reactive Lymphs % (Man) 17 % 11/19/21 06:34 Monocytes % (Manual) 9 % 11/19/21 06:34 Eosinophils % (Manual) 2 % 11/19/21 06:34 Neutrophils # (Manual) 1.62 K/uL (1.4-6.5) 11/19/21 06:34 Total Absolute Neuts 1.62 K/uL (1.4-6.5) 11/19/21 06:34 Lymphocytes # (Manual) 1.27 K/uL (1.2-3.4) 11/19/21 06:34 Reactive Lymphs # 0.67 K/uL 11/19/21 06:34 Total Abs Lymphocytes 1.94 K/uL (1.2-3.4) 11/19/21 06:34 Monocytes # (Manual) 0.36 K/uL (0.24-0.82) 11/19/21 06:34 Eosinophils # (Manual) 0.08 K/uL (0-0.50) 11/19/21 06:34 Toxic Vacuolation 2+ 11/17/21 13:09 Peripher Smr Path Cons 11/17/21 13:09 Sodium 137 mmol/L (136-145) 11/19/21 10:41 Potassium 3.2 mmol/L (3.5-5.1) L 11/19/21 06:34 Chloride 98 mmol/L (98-107) 11/19/21 06:34 Carbon Dioxide 25 mmol/L (21-32) 11/19/21 06:34 Anion Gap 6 (3-11) 11/19/21 06:34 BUN 15 mg/dl (6-23) 11/19/21 06:34 Creatinine 0.58 mg/dl (0.6-1.2) L 11/19/21 06:34 Est Cr Clr Drug Dosing 72.2 ml/min 11/19/21 06:34 Est GFR ( Amer) 109.0 ml/min 11/19/21 06:34 Est GFR (Non-Af Amer) 94.0 ml/min 11/19/21 06:34 BUN/Creatinine Ratio 25.9 (10-20) H 11/19/21 06:34 Glucose 109 mg/dl (70-99(Fasting)) H 11/19/21 06:34 Osmolality 259 mOsm/kg (280-300) L 11/17/21 13:09 Lactate 1.4 mmol/L (0.4-2.0) 11/17/21 13:09 Calcium 8.8 mg/dl (8.5-10.1) 11/19/21 06:34 Magnesium 2.2 mg/dl (1.7-2.4) 11/19/21 06:34 Total Bilirubin 0.6 mg/dl (0.2-1.0) 11/19/21 06:34 AST 80 U/L (13-39) H 11/19/21 06:34 ALT 86 U/L (7-52) H 11/19/21 06:34 Alkaline Phosphatase 82 U/L (34-104) 11/19/21 06:34 Troponin I High Sens 12.1 pg/ml (0-14) 11/17/21 13:09 Total Protein 6.7 gm/dl (6.0-8.3) D 11/19/21 06:34 Albumin 3.8 gm/dl (3.4-5.0) 11/19/21 06:34 Globulin 2.9 gm/dl (2.5-4.0) 11/19/21 06:34 Albumin/Globulin Ratio 1.3 (0.9-2) 11/19/21 06:34 TSH 1.256 uIu/ml (0.300-4.500) 11/17/21 13:09 Urine Color Yellow 11/17/21 16:59 Urine Appearance Clear (Clear) 11/17/21 16:59 Urine pH 6.5 (4.5-7.5) 11/17/21 16:59 Ur Specific [place] 1.010 (1.000-1.030) 11/17/21 16:59 Urine Protein 1+ (Negative) H 11/17/21 16:59 Urine Glucose (UA) Negative (Negative) 11/17/21 16:59 Urine Ketones Negative (Negative) 11/17/21 16:59 Urine Blood 1+ (Negative) H 11/17/21 16:59 Urine Nitrite Negative (Negative) 11/17/21 16:59 Urine Bilirubin Negative (Negative) 11/17/21 16:59 Urine Urobilinogen Negative (Negative) 11/17/21 16:59 Ur Leukocyte Esterase Negative (Negative) 11/17/21 16:59 Urine WBC (Auto) 1-5 /hpf (0-5) 11/17/21 16:59 Urine RBC (Auto) 5-10 /hpf (0-4) H 11/17/21 16:59 U Hyaline Cast (Auto) 1-5 /lpf (0-5) 11/17/21 16:59 U Epithel Cells (Auto) 10-20 /lpf (0-5) H 11/17/21 16:59 Urine Bacteria (Auto) Negative (Negative) 11/17/21 16:59 Urine Osmolality 246 mOsm/kg (500-800) L 11/17/21 16:59 Ur Random Sodium < 10 mmol/L 11/17/21 16:59 Anaplasma Smear See Comment A 11/17/21 13:09 Anaplasma Comment Pos for Anaplasma 11/17/21 13:09 Lyme Disease IgG Ab Negative (Negative) 11/17/21 15:05 Lyme Disease IgM Ab Negative (Negative) 11/17/21 15:05 SARS-CoV-2 (PCR) NEGATIVE (Negative) 11/17/21 17:47 Impressions Chest X-Ray 11/17/21 12:54 XR chest 1V portable HISTORY: 71 years-old Female weakness acute weakness COMPARISON: None TECHNIQUE: Portable AP view of the chest FINDINGS: Cardiomediastinal and hilar silhouettes are within normal limits. No pneumothorax, pleural effusion, airspace consolidation or overt pulmonary edema. Bones of the chest appear grossly intact. IMPRESSION: No acute process. ACT 112: Negative or not required by law. The above report was generated using voice recognition software. It may contain grammatical, syntax or spelling errors. Electronically signed by: Sai Grimaldo M.D. 11/17/2021 1:05 PM Hospital Course (1) Fever: (2) Anaplasmosis: (3) Thrombocytopenia: (4) Elevated liver enzymes: Patient is a 71 yr female with H/O Myxoid fibrosarcoma right lower leg with right transfemoral amputation, GERD, dyslipidemia presented to ER with c/o T max fever of 102F, lethargy, myalgias, weakness, anorexia x 3 days. Anaplasmosis Leukopenia, thrombocytopenia, transaminitis, hyponatremia secondary to above Peripheral smear consistent with intracytoplasmic neutrophilic inclusions Patient denies tick exposure Lyme screen negative Blood cultures: Negative to date Continue doxycycline CBC, LFTs, sodium levels continues to improve Plan to discharge home today Advised to get repeat CBC, CMP as outpatient in 1 week and follow up with PCP (5) Hyponatremia: Hypoosmolar hyponatremia Likely secondary to poor oral intake, anaplasmosis Sodium levels improved to 137 Received IV fluids Monitor sodium levels Appreciate nephrology input (6) Hypokalemia: Replace and monitor (7) Fibrosarcoma: H/O fibrosarcoma right lower leg status post transfemoral amputation after failed limb salvage Continue gabapentin for phantom limb pain (8) GERD (gastroesophageal reflux disease): Continue PPI (9) Dyslipidemia: Continue atorvastatin DVT PX: SCDs Re:Thrombocytopenia Code Status Full Code Disposition Home Total Time Total Time Spent Total Time Spent (In Minutes): 45 minutes Discharge Plan Discharge Items Patient Disposition: Home - Self-Care Reason For Visit: ANAPLASMOSIS Discharge Diagnosis: Anaplasmosis Hyponatremia Hypokalemia Activity: Per Instructions section Exercise/Sports: Gradually increase as tolerated Non-emergency contact: Primary Care Provider Call non-emergency contact if: you have any medication questions, your symptoms worsen, your pain is concerning for you and you have a fever Follow-up/Referrals: Gurpreet Mead MD [Primary Care Provider] - Diet: Regular Addtl Attending Provider Instructions: Follow-up with your primary care physician in 1 week as advised --- Complete the doxycycline course as prescribed for anaplasmosis. -- Get blood test (CBC, CMP) in 1 week and follow-up with your primary care physician with results for further instructions. Seek immediate medical attention if your symptoms reoccur or worsen Please take all medications as instructed on discharge list below. Please call if you have any questions or problems. You can reach a [facility] hospitalist on duty at [facility] 24 hours a day by calling [phone] Pending Studies at Discharge: Yes Studies:: Final Blood Culture results Stand-Alone Forms: My [facility], Smoking Cessation Medications and DC Order Prescriptions: New doxycycline hyclate 100 mg tablet 100 mg PO BID Qty: 20 0RF potassium chloride 20 mEq tablet extended release 20 meq PO DAILY Qty: 5 0RF Continued gabapentin 300 mg capsule 600 - 900 mg PO TID Rx Instructions: Pt takes 600mg TID, however if has increased phantom pain takes 900mg TID atorvastatin 20 mg tablet 20 mg PO DAILY Probiotic 3 billion cell Capsule 0 mmu cells PO DAILY Rx Instructions: administer with a meal pantoprazole 40 mg tablet,delayed release (DR/EC) 40 mg PO DAILY Discharge Orders: Discharge Order (Routine); Ordered 11/19/21 Ordered By: Rito Gaytan Admission Data Admit Date/Time: 11/17/21 16:26 Attending Provider: Rito Gaytan Admit Provider: Rito Gaytan Primary Care Provider: Gurpreet Mead Other Providers: Maria De Jesus Schmitz ; Bryan Cormier
[2021-11-19 16:31] LABS: Anion Gap 9.9 (3-11)
[2021-11-20 07:24] LABS: Estimated Average Glucose 131 mg/dl; Hemoglobin A1C 6.2 % (4.5-5.6)
== END 2021-11-19 14:36 | disposition home or self-care (01) | DRG 868 ==
LOC: ED 12:20 → 2W 16:26